=== PATIENT | female | born 1940 | race Two or more races ===

== ENCOUNTER 2020-05-28 16:34 | Outpatient (CLI) | payer OTHER | END 2020-05-28 16:35 | disposition home or self-care (01) | LOC: LAB 16:34 → AMB-ENDOS 06-01 14:15 → EDSTATUS 06-01 14:15 → ADM 06-01 14:15 | PROVIDERS: ATTEND Colon & Rectal Surgery | DX: K64.2 Third degree hemorrhoids (principal); K92.2 Gastrointestinal hemorrhage, unspecified; Z12.11 Encounter for screening for malignant neoplasm of colon; Z20.828 Contact with and (suspected) exposure to other viral communicable diseases; Z01.812 Encounter for preprocedural laboratory examination ==

== ENCOUNTER 2020-11-30 07:34 | Day surgery (SDC) | payer OTHER | END 2020-11-30 11:55 | disposition home or self-care (01) | LOC: AMB-ENDOS 07:34 | PROVIDERS: ATTEND Colon & Rectal Surgery | DX: K62.89 Other specified diseases of anus and rectum (principal); K64.2 Third degree hemorrhoids; Z20.828 Contact with and (suspected) exposure to other viral communicable diseases; Z12.11 Encounter for screening for malignant neoplasm of colon ==

== ENCOUNTER 2021-06-18 07:15 | Inpatient (IN) | payer OTHER ==
[~2021-06-18] VITALS: Ht 165.1 cm; Wt 81.6 kg
[2021-06-18] MEDS ORDERED: PROTONIX40 MG PO (09:21)
[2021-06-18] MEDS ORDERED: FOLIC ACID0.8 M1 PO (09:22)
[2021-06-18] MEDS ORDERED: LIPITOR20 MG PO (09:22)
[2021-06-18] MEDS ORDERED: ZOVIRAX200 MG PO (09:22)
[2021-06-18] MEDS ORDERED: VIT C-ROSE HIP500 MG PO (09:23)
[2021-06-18] MEDS ORDERED: D3 + K2 DOTS 11 EACH PO (09:23)
[2021-06-18] MEDS ORDERED: FOLIC-K CAPSUL1 EACH PO (09:24)
[2021-06-18] MEDS ORDERED: TRIPLE FLEX CA1 EACH PO (09:25)
[2021-06-18] MEDS ORDERED: GABAPENTIN PO (09:51)
[2021-06-25] MEDS ORDERED: FOLIC ACID1 MG (09:38)
[2021-06-25] MEDS ORDERED: GABAPENTIN100 M2 (09:38)
[2021-06-25] MEDS ORDERED: TOBRAMYCIN-DEXAM5 ML (09:38)
[2021-06-28] MEDS ORDERED: ELIQUIS2.5 MG PO (08:10)
[2021-06-28] MEDS ORDERED: CEFADROXIL500 MG PO (08:10)
[2021-06-28] MEDS ORDERED: PERCOCET 5-3251 EACH PO (08:10)
== END 2021-06-28 13:28 | DRG 470 ==
LOC: O/R 06-25 05:40 → SURH 06-25 05:40
PROVIDERS: ADMIT Orthopaedic Surgery; ATTEND Orthopaedic Surgery
PROC: 0SNC0ZZ Release Right Knee Joint, Open Approach (ICD-10-PCS; 2021-06-25)
PROC: 0SRC0J9 Replacement of Right Knee Joint with Synthetic Substitute, Cemented, Open Approach (ICD-10-PCS; principal; 2021-06-25 07:00)
DX: M17.11 Unilateral primary osteoarthritis, right knee (principal); D62 Acute posthemorrhagic anemia; M22.11 Recurrent subluxation of patella, right knee; Z20.822 Contact with and (suspected) exposure to COVID-19; E66.8 Other obesity

== ENCOUNTER 2022-01-08 08:15 | Inpatient (IN) | payer OTHER ==
[~2022-01-08] VITALS: Ht 167.6 cm; Wt 81.6 kg
[~2022-01-08 08:15] MED LIST: CEFADROXIL500 MG PO; D3 + K2 DOTS 11 EACH PO; ELIQUIS2.5 MG PO; FOLIC ACID0.8 M1 PO; FOLIC ACID1 MG; FOLIC-K CAPSUL1 EACH PO; GABAPENTIN PO; GABAPENTIN100 M2; LIPITOR20 MG PO; PERCOCET 5-3251 EACH PO; PROTONIX40 MG PO; TOBRAMYCIN-DEXAM5 ML; TRIPLE FLEX CA1 EACH PO; VIT C-ROSE HIP500 MG PO; ZOVIRAX200 MG PO
[2022-01-08] MEDS ORDERED: MULTIVITAM PO (09:48)
[2022-01-08] MEDS ORDERED: ZOVIRAX200 MG (09:48)
[2022-01-08] MEDS ORDERED: VITAMIN D3 PO (09:48)
[2022-01-08] MEDS ORDERED: VITAMIN C PO (09:49)
[2022-01-08] MEDS ORDERED: [UNRECOGNIZED DRUG - OTHER] PO (09:49)
[2022-01-14] MEDS ORDERED: FERROUS GLUCON324 M1 (08:09)
[2022-01-14] MEDS ORDERED: GABAPENTIN100 M2 (08:09)
[2022-01-14] MEDS ORDERED: DAILY VALUE1 EACH (08:12)
[2022-01-16] MEDS ORDERED: PERCOCET 5-3251 EACH PO (14:45)
[2022-01-16] MEDS ORDERED: DUI500 PO (14:45)
[2022-01-16] MEDS ORDERED: ELIQUIS2.5 MG PO (14:45)
== END 2022-01-16 19:41 | disposition home or self-care (01) | DRG 470 ==
LOC: O/R 01-14 06:12 → SURH 01-14 06:12
PROVIDERS: ADMIT Orthopaedic Surgery; ATTEND Orthopaedic Surgery
PROC: 0SRD0J9 Replacement of Left Knee Joint with Synthetic Substitute, Cemented, Open Approach (ICD-10-PCS; principal; 2022-01-14 18:15)
DX: M17.12 Unilateral primary osteoarthritis, left knee (principal); D62 Acute posthemorrhagic anemia; M81.0 Age-related osteoporosis without current pathological fracture; M22.12 Recurrent subluxation of patella, left knee; E66.01 Morbid (severe) obesity due to excess calories